=== PATIENT | female | born 1980 | race American Indian/Alaskan Native ===

== ENCOUNTER 2020-10-28 08:14 | Emergency (ER) | payer MEDICAID ==
[2020-10-28 08:28] VITALS: BP 150/104
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
== END 2020-10-28 10:00 | disposition home or self-care (01) ==
LOC: ED 08:14
DX: S16.1XXA Strain of muscle, fascia and tendon at neck level, initial encounter (principal); V89.2XXA Person injured in unspecified motor-vehicle accident, traffic, initial encounter; Y93.89 Activity, other specified; Y92.89 Other specified places as the place of occurrence of the external cause; Y99.8 Other external cause status
CPT/HCPCS: 99281